=== PATIENT | female | born 1985 | race American Indian/Alaskan Native ===

== ENCOUNTER 2022-02-15 06:30 | Observation (INO) | payer BC ==
[2022-02-13 13:17] LABS: Basophils % (Auto) 0.7 % (0.0-1.8); Eosinophils # (Auto) 0.1 K/mm3 (0.0-0.4); Eosinophils % (Auto) 1.9 % (0.0-4.3); Hematocrit 36.5 % (30.3-42.9); Hemoglobin 12.6 gm/dl (10.1-14.3); Lymphocytes # (Auto) 1.6 K/mm3 (1.2-5.4); Lymphocytes % (Auto) 36.6 % (13.4-35.0); Mean Corpuscular HGB Conc 35 % (30-34); Mean Corpuscular Volume 92 fl (79-97); Monocytes # (Auto) 0.4 K/mm3 (0.0-0.8); Monocytes % (Auto) 8.5 % (0.0-7.3); Platelet Count 208 K/mm3 (140-440); Red Blood Count 3.98 M/mm3 (3.65-5.03); Red Cell Distribution Width 15.9 % (13.2-15.2)
[2022-02-13 13:37] LABS: BUN/Creatinine Ratio 19; Blood Urea Nitrogen 19 mg/dL (7-17); Calcium 9.2 mg/dL (8.4-10.2); Hemolysis Index 5
--- NOTE | 2022-02-13 13:43 | Anesthesia Consultation ---
Anesthesia Consult and Med Hx Date of service: 02/13/22 - Airway Anesthetic Teeth Evaluation: Chipped ROM Head & Neck: Adequate Mental/Hyoid Distance: Adequate Mallampati Class: Class II Intubation Access Assessment: Good - Pre-Operative Health Status ASA Pre-Surgery Classification: ASA1 Proposed Anesthetic Plan: General Nerve Block: TAP - Pulmonary Hx Smoking: No Hx Sleep Apnea: No (TESTED WAS NEGATIVE) - Cardiovascular System Hx Hypertension: No Hx Heart Attack/AMI: No - Central Nervous System Hx Back Pain: Yes (RT FOOT 2 TOES NUMBNESS, PAIN,WEAKNESS) Hx Psychiatric Problems: No - Hematic Hx Anemia: No Hx Sickle Cell Disease: No - Other Systems Hx Alcohol Use: No Hx Substance Use: No Hx Cancer: No Hx Obesity: No
--- NOTE | 2022-02-14 16:58 | History and Physical Report ---
History of Present Illness Date of examination: 02/13/22 History of present illness: Patient has been reassessed/reevaluated. H&P has been reviewed. No interval changes. This is a 36 years old female who presents with uterine fibroids. She complains of abdominal pain, abdominal pressure, pelvic pain, pelvic pressure and menorrhagia, Periods are heavier during the 1st 3 days. Pt also c/o pain with sex. She denies intermenstrual bleeding. Associated symptoms include constipation. Patient's work up has included hysterosonogram with a benign endometrial biopsy and revealed multiple intramural myomas. Patient's symptoms when present disrupts her normal daily activities Patient desires definitive treatment Vital Signs: Patient Profile: 37 Years Old Female LMP: 01/17/2022 Height: 67 inches Weight: 184 pounds BMI: 28.82 Temp: 98.0 degrees F BP sittin / 70 (left arm) Menstrual History: LMP (date): 01/17/2022 Date of Last Pap Smear: 11/02/2021 Past History : 4 Term Births: 1 Premature Births: 0 Living Children: 1 Para: 1 Mult. Births: 0 Prev : 0 Aborta: 3 Elect. Ab: 0 Spont. Ab: 3 Ectopics: 0 Current Allergies (reviewed today): No known allergies Past Medical History: Fibroids Past Surgical History: Negative Past Surgical History Family History Summary: General Comments - FH: Colon Ca-mther HTN-both parents DM-MGM high cholesterol Social History: Patient is Smoking History: Patient has never smoked. 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 of genital herpes: no Hx of STD: None Review of Systems General Complains of fatigue. Denies fever, chills, sweats, anorexia, weakness, malaise, weight loss and sleep disorder. Complains of menorrhagia, pelvic pain, painful periods and painful sex. Denies vaginal discharge, incontinence, dysuria, hematuria, urinary frequency, amenorrhea, abnormal vaginal bleeding, genital sores, decreased libido, urinary urgency, hot flashes, vaginal dryness, vaginal itching and vaginal odor. CV Denies chest pains, palpitations, syncope, dyspnea on exertion, orthopnea, PND and peripheral edema. Resp Denies cough, dyspnea at rest, excessive sputum, hemoptysis, wheezing and pleurisy. GI Denies nausea, vomiting, diarrhea, constipation, change in bowel habits, abdominal pain, melena, hematochezia, jaundice, gas/bloating, indigestion/heartburn, dysphagia and odynophagia. Breast Denies left breast lump, right breast lump, nipple discharge, bloody discharge from nipple, breast pain, abnormal mammogram and breast enlargement. Psych Denies depression, anxiety, irritability and mood swings. Past History Past Medical History: other (See HPI for details) Past Surgical History: Other (See HPI for details) Social history: full code, other (See HPI for details) Family history: other (See HPI for details) Medications and Allergies Allergies Allergy/AdvReac Type Severity Reaction Status Date / Time No Known Allergies Allergy Unverified 02/07/22 11:10 Home Medications Medication Instructions Recorded Confirmed Last Taken Type Multivitamin [One-Daily 1 tab PO DAILY 02/07/22 02/07/22 Unknown History Multi-Vitamin] Active Meds: Active Medications Acetaminophen (Acetaminophen 500 Mg Tab) 1,000 mg PO ONCE ONE Stop: 02/15/22 06:01 Celecoxib (Celecoxib 200 Mg Cap) 400 mg PO PREOP NR Stop: 02/15/22 23:59 Fentanyl (Fentanyl 100 Mcg/2 Ml Inj) 100 mcg IV ONCE ONE Stop: 02/15/22 06:01 Cefazolin Sodium (Ancef/Sterile Water 2 Gm/20 Ml) 2 gm in 20 mls @ 80 mls/hr IV PREOP NR; Protocol Stop: 02/15/22 23:59 Lactated Ringer's (Lactated Ringers) 1,000 mls @ 125 mls/hr IV DIRECT MARLENE Magnesium Oxide (Magnesium Oxide 400 Mg Tab) 400 mg PO ONCE ONE Stop: 02/15/22 06:01 Methocarbamol (Methocarbamol 750 Mg Tab) 1,500 mg PO ONCE ONE Stop: 02/15/22 06:01 Midazolam HCl (Midazolam 2 Mg/2 Ml Inj) 2 mg IV PREOP NR Stop: 02/15/22 23:59 Review of Systems Constitutional: other (See HPI for details) Exam - Physical Exam Narrative exam: HEENT: normocephalic, no lesions or deformities Skin no ulcers, xanthomas CV: regular, normal S1-S2, no murmur, no rub, no gallop Abdomen: soft, non-tender, no masses, bowel sounds normal Neuro: no gross anomalities Extremities: normal alignment, no joint enlargement, crepitus, masses or tenderness; normal tone and strength BI TESTER Exams Vulva/Vagina: normal appearance, no discharge, lesions. No evidence of cystocele or rectocele. Cervix: normal appearance, no lesions, no discharge Uterus: Enlarged uterus 12 to 14 weeks size with probable posterior myoma Adnexae: no masses or tenderness Rectovaginal: exam defered Results - Labs CBC & Chem 7: 02/13/22 13:05 02/13/22 13:05 Assessment and Plan - Patient Problems (1) Intramural leiomyoma of uterus Current Visit: No Status: Acute Plan to address problem: Diagnosis explained to patient . Questions answered. Discussed with patient various medical, surgical and radiological therapies common for treatment including expectant management, myomectomy hysterectomy and uterine artery e mbolization. Patient desires to retain future fertility. She desires myomectomy. Discussed risks and benefits of laparotomy and robotic assisted approaches Patient desires robotic assisted myomectomy. Discuss the risks of the surgery including infection, bleeding possibly heavy enough to require a blood transfusion, possible damage to bowel, bladder or ureter. Patient understands that there is a possibility that a hysterectomy maybe indicated for severe bleeding not resoved with conservative measures. Patient advised the small risks of spreading of malignancy if morcellator is used during the surgery patient understands and approve of use if necessary. Patient also understand that this method may not reomove all of her myomas. All her questions were answered. Patient understands and desires to proceed. (2) Dysmenorrhea Current Visit: No Status: Acute Plan to address problem: Probably secondary to # 1 (3) Menorrhagia Current Visit: No Status: Acute Qualifiers: Menorrhagia type: with regular cycle Qualified Code(s): N92.0 - Excessive and frequent menstruation with regular cycle Plan to address problem: Probably secondary to # 1
[~2022-02-15 06:30] MED LIST: ACETAMINOPHEN 500 MG TAB PO ONE; CELECOXIB 200 MG CAP PO NR; LACTATED RINGERS 1,000 ML IV SCH; MAGNESIUM OXIDE 400 MG TAB PO ONE; MIDAZOLAM 2 MG/2 ML INJ IV NR; fentaNYL 100 MCG/2 ML INJ IV ONE
[2022-02-15] MEDS ORDERED: HYDROmorphone 1 MG/1 ML INJ IV PRN ×2 (07:17)
--- NOTE | 2022-02-15 07:17 | Anesthesia Day of Surgery ---
Anesthesia Day of Surgery - Day of Surgery Patient Examined: Yes Patient H&P Reviewed: Yes Patient is NPO: Yes
[2022-02-15] MEDS ORDERED: BUPIVACAINE/PF (0.25%) 2.5 MG/ML 30 ML VIAL INFILTRATI ONE (07:22)
[2022-02-15] MEDS ORDERED: dexAMETHasone 4 MG/ML VIAL ONE (07:23)
[2022-02-15] MEDS ORDERED: ceFAZolin/Water 2 GM/20 ML 2 GM/20 ML SYRINGE IV NR (07:30)
[2022-02-15] MEDS ORDERED: ONDANSETRON 4 MG/2 ML INJ IV PRN ×2 (07:30→18:11)
[2022-02-15] MEDS ORDERED: SODIUM CHLORIDE 0.9% 100 ML ONE (07:34)
[2022-02-15] MEDS ORDERED: VASOPRESSIN 20 UNIT/1 ML INJ ONE (07:35)
[2022-02-15] MEDS ORDERED: CITRIC ACID-SOD CITRATE 500 ML IV ONE (07:56)
[2022-02-15] MEDS ORDERED: propofoL 200 MG/20 ML VIAL IV ONE (07:57)
[2022-02-15] MEDS ORDERED: KETAMINE/STERILE WATER 50 MG/ML SYRINGE ONE (07:57)
[2022-02-15] MEDS ORDERED: LIDOCAINE MPF (2%) 20 MG/1 ML VIAL 5 ML ONE ×2 (07:58→08:41)
[2022-02-15] MEDS ORDERED: SCOPOLAMINE TRANSDERMAL PATCH 72 HR TD ONE (08:34)
[2022-02-15] MEDS ORDERED: KETOROLAC 30 MG/1 ML INJ ONE (08:41)
[2022-02-15] MEDS ORDERED: ONDANSETRON 4 MG/2 ML INJ ONE (08:41)
[2022-02-15] MEDS ORDERED: ROCURONIUM 50 MG/5 ML INJ IV ONE ×2 (08:41→09:07)
[2022-02-15] MEDS ORDERED: LACTATED RINGERS 1,000 ML ONE (10:02)
[2022-02-15] MEDS ORDERED: HYDROcodone/ACETAMINOPHEN 5-325 MG TAB PO PRN (11:43)
[2022-02-15] MEDS ORDERED: HYDROmorphone 1 MG/1 ML INJ ONE (11:43)
[2022-02-15] MEDS ORDERED: ACETAMINOPHEN 325 MG TAB PO PRN ×2 (11:43→16:49)
[2022-02-15] MEDS ORDERED: VASOPRESSIN 20 UNIT/1 ML INJ IM ONE (11:52)
[2022-02-15] MEDS ORDERED: SODIUM CHLORIDE 0.9% 100 ML IVPB IV ONE (11:53)
[2022-02-15] MEDS ORDERED: SODIUM CHLORIDE 0.9% IRRIG SOLN 2000 ML IR ONE (11:53)
[2022-02-15] MEDS ORDERED: CITRIC ACID-SOD CITRATE SOLN 500 ML IV SOLN IV ONE (11:53)
[2022-02-15] MEDS ORDERED: WATER FOR IRRIG STERILE 1,500 ML BOTTLE IR ONE (11:53)
--- NOTE | 2022-02-15 12:03 | Operative Report ---
Operative Report Operative Report: Date of procedure: February 15, 2022 Pre-operative diagnosis: Symptomatic leiomyomata with dysmenorrhea menorrhalgia. Post-operative diagnosis: Same Procedure name(s): Robotic assisted myomectomy Surgeon: Micah Vail MD Supervisor Ovens: Katey Parson, certified performance technologist Anesthesia: General endotracheal EBL: 150 cc Complications: [] Findings: [] Specimen(s): [] Procedure: Patient taken operating room where general endotracheal anesthesia was induced difficulty. She was placed in dorsal lithotomy position prepped and draped in usual normal sterile fashion for robotic procedure. The Flores catheter was placed in urinary bladder without difficulty speculum placed in the vagina. A medium [facility] [place] uterine manipulator was placed without any difficulty. Then attention was switched to the patient's abdomen. Supra-umbilical incision was made with a knife. Spread with a hemostat. A 10-12 Trocar was placed in this incision while lifting out anterior abdominal wall under direct visualization. Intra-abdominal cavity was entered without any evidence of internal organ d amage. Patient was insufflated approximately 3 and half liters of CO2 gas. Patient's pelvic findings noted above. The patient was perceived to be a candidate for robotic procedure. Three 8 mm robotic instrument trocars were placed. One on either side of the midline camera trocar approximately 8 cm from the midline and a third in the left lower quadrant approximately 2 fingerbreadths above the iliac crest. The trocars were placed under direct visualization with no signs of internal organ damage. An marketing support assistant port was placed in the right lower quadrant 2 fingerbreadths above the iliac crest under direct visualization without any evidence of internal organ damage, this was a 10-12 trocar. Jed Rivas fascia closure systems were placed in both the right lower quadrant trocar position and the midline trocar camera position. The patient was then placed in severe Trendelenburg position. At this time the da Celina robot was docked on the patient's left side and robotic trocars were connected and robotic instruments placed in the normal fashion. At that time I my place under the operating moreno. [] All instruments were removed. The da Celina device was undocked. The abdominal incisions were closed with 2-0 Vicryl it was placed through the Jed Rivas fascial closure system. This was followed by 4-0 Monocryl subcutaneously. Patient tolerated procedure well. Patient was awakened in operating room and accompanied to recovery room in good condition.
--- NOTE | 2022-02-15 12:57 | Post Anesthesia Evaluation ---
- Post Anesthesia Evaluation Patient Participated: Yes Airway Patent: Yes Stable Respiratory Function: Yes Nausea/Vomiting: No Temp > 96.8F: Yes Pain Manageable: Yes Adequeate Hydration: Yes Anesthesia Complications: No Block Receding Appropriately: Yes Patient on Ventilator: No
--- NOTE | 2022-02-15 15:51 | Event Note ---
Date: 02/15/22 Phone call from recovery room patient unable to void with complaints of severe pain and nausea. Will admit patient to mother-baby for observation. Reevaluate later this evening.
[2022-02-15] MEDS ORDERED: oxyCODONE /ACETAMINOPHEN 5-325MG TAB PO PRN (16:49)
[2022-02-15] MEDS ORDERED: D5W/LACTATED RINGERS 1,000 ML IV SCH (16:49)
[2022-02-15] MEDS: ceFAZolin/NS 1 GM/50 ML 1 GM/50 ML BAG IV SCH (17:48)
[2022-02-15] MEDS: KETOROLAC 30 MG/1 ML INJ IV SCH ×2 (17:49→23:54)
--- NOTE | 2022-02-15 17:49 | Event Note ---
Date: 02/15/22 Day of surgery. Discuss operative findings with patient and questions answered. Patient without fever. Patient is complaining of nausea with some dry heaving syndrome. Patient still has not voided but as I was leaving the room the patient was getting up to void. Patient with some postoperative urinary retention and nausea with some dizziness when getting up. Will observe for longer assessed urine output and GI symptoms. We will check hemoglobin and hematocrit.
[2022-02-15 20:50] LABS: Hematocrit 32.1 % (30.3-42.9); Hemoglobin 11.3 gm/dl (10.1-14.3)
[2022-02-15] MEDS ORDERED: DOCUSATE SODIUM 100 MG CAP PO SCH (22:00)
[2022-02-16] MEDS: ceFAZolin/NS 1 GM/50 ML 1 GM/50 ML BAG IV SCH (01:25)
[2022-02-16] MEDS: KETOROLAC 30 MG/1 ML INJ IV SCH (06:02)
[2022-02-16 06:13] LABS: Hematocrit 31.1 % (30.3-42.9); Hemoglobin 10.6 gm/dl (10.1-14.3)
--- NOTE | 2022-02-16 11:27 | Short Stay Summary ---
Short Stay Documentation Date of service: 02/15/22 - History H&P: dictated Past Medical History: other (See HPI for details) Past Surgical History: Other (See HPI for details) Social history: full code, other (See HPI for details) - Allergies and Medications Current Medications: Allergies No Known Allergies Allergy (Unverified 02/07/22 11:10) Home Medications Medication Instructions Recorded Confirmed Last Taken Type Multivitamin [One-Daily 1 tab PO DAILY 02/07/22 02/07/22 Unknown History Multi-Vitamin] Ibuprofen [Motrin] 800 mg PO TID PRN #30 tablet 02/15/22 Unknown Rx oxyCODONE /ACETAMINOPHEN [Percocet 1 tab PO Q6HR PRN #20 tablet 02/15/22 Unknown Rx 5/325 mg] Active Medications Acetaminophen (Acetaminophen 325 Mg Tab) 650 mg PO Q4H PRN PRN Reason: Pain, Mild (1-3) Docusate Sodium (Docusate Sodium 100 Mg Cap) 100 mg PO BID MARLENE Last Admin: 02/15/22 22:07 Dose: 100 mg Dextrose/Lactated Ringer's (D5lr) 1,000 mls @ 125 mls/hr IV DIRECT MARLENE Ondansetron HCl (Ondansetron 4 Mg/2 Ml Inj) 4 mg IV Q8H PRN PRN Reason: Nausea And Vomiting Last Admin: 02/15/22 18:18 Dose: 4 mg Oxycodone/Acetaminophen (Oxycodone /Acetaminophen 5-325mg Tab) 1 tab PO Q6H PRN PRN Reason: Pain, Moderate (4-6) Last Admin: 02/15/22 20:18 Dose: 1 tab - Physical exam General appearance: no acute distress Integumentary: no rash HEENT: Atraumatic Lungs: Normal air movement Breasts: deferred Heart: Regular rate Gastrointestinal: normoactive bowel sounds, tenderness (Appropriately postop), distended (Appropriately postop robotic surgery), other (Slight bruising at incision sites but intact surgical incisions) Female Genitourinary: deferred Extremities: no ischemia Neurological: Normal gait, Normal speech - Brief post op/procedure progress note Date of procedure: 02/15/22 (See dictated operative note for details) Condition: stable - Hospital course Hospital course: Patient was admitted and underwent above procedure without complications. Her post operative course was affected by postoperative nausea and urinary retention. Both problems resolved overnight. She was afebrile throughout. Patient postoperative day 1 hematocrit was in an acceptable range. Patient had no orthostatic symptoms. Patient was tolerating regular diet and voiding without difficulty at time of discharge. Patient incision was healing well without evidence of infection. - Disposition Condition at discharge: Good Disposition: 01 HOME / SELF CARE / HOMELESS - Discharge Diagnoses (1) Intramural leiomyoma of uterus Status: Acute (2) Dysmenorrhea Status: Acute (3) Menorrhagia Status: Acute Qualifiers: Menorrhagia type: with regular cycle Qualified Code(s): N92.0 - Excessive and frequent menstruation with regular cycle (4) Postoperative urinary retention Status: Resolved (5) Status post robot-assisted surgical procedure Status: Acute Short Stay Discharge Plan Activity: advance as tolerated Diet: regular Wound: open to air Additional Instructions: Patient instructed no heavy lifting for 4 weeks. No intercourse for 8 weeks. Call office for fever, chills, nausea, vomiting or pain not controlled by pain medications. Ambulation is encouraged. Patient's call for heavy vaginal bleeding. Patient instructed to keep her scheduled post operative office appointment. Follow up with: PRIMARY CARE, [Primary Care Provider] - 7 Days Prescriptions: Ibuprofen [Motrin] 800 mg PO TID PRN #30 tablet PRN Reason: Pain oxyCODONE /ACETAMINOPHEN [Percocet 5/325 mg] 1 tab PO Q6HR PRN #20 tablet PRN Reason: Pain
[2022-02-16 15:38] VITALS: BP 107/62
== END 2022-02-16 12:40 | disposition home or self-care (01) ==
LOC: OR 06:30 → OB 15:51
PROVIDERS: ADMIT Obstetrics & Gynecology; ATTEND Obstetrics & Gynecology
DX: D25.1 Intramural leiomyoma of uterus (principal); Z20.822 Contact with and (suspected) exposure to COVID-19; N94.6 Dysmenorrhea, unspecified; N92.0 Excessive and frequent menstruation with regular cycle; N94.5 Secondary dysmenorrhea; R33.8 Other retention of urine; N99.89 Other postprocedural complications and disorders of genitourinary system; Z98.890 Other specified postprocedural states; Z79.899 Other long term (current) drug therapy
CPT/HCPCS: 36415; 58140; 64488; 80048; 84703; 85014; 85018; 85025; 86850; 86900; 86901; 88305; 96365; 96366; 96375; 96376; C1765; C1782; G0378; J0690; J1100; J1170; J1885; J2250; J2405; J2704; J3010; J3490; J7120; S2900; U0003; 64450